=== PATIENT | female | born 1985 | race Caucasian/White ===

== ENCOUNTER 2018-01-11 09:35 | Day surgery (SDC) | payer SELFPAY, BC ==
[~2018-01-11 09:35] MED LIST: Acetaminophen/HYDROcodone 325-5 MG Tab PO PRN; Bupivacaine 0.25%/EPINEPHrine 1:200,000 10 ML SDV INJECT ONE; Bupivacaine 0.25%/EPINEPHrine 1:200,000 10 ML SDV ONE; EPINEPHrine 1 MG/ML SDV ONE; Gentamicin 40 MG/ML 2 ML Vial ONE; Lactated Ringers 1,000 ML IV SCH; Lidocaine 2% 5 ML SDV ONE; Midazolam 1 MG/ML 2 ML SDV ONE; Propofol 200 MG/20 ML SDV ONE; Rocuronium 10 MG/ML 10 ML Syringe ONE; ceFAZolin 1 GM Vial ONE; fentaNYL 100 MCG/2 ML SDV ONE
[2018-01-11] MEDS ORDERED: fentaNYL 100 MCG/2 ML SDV IVPUSH PRN (10:21)
--- NOTE | 2018-01-11 10:43 | PCM.PREANE ---
Preanesthetic Assessment - Anesthesia/Transfusion/Family Hx Anesthesia History: Prior Anesthesia Without Reaction Family History of Anesthesia Reaction: No Transfusion History: No Prior Transfusion(s) - Review of Systems General: No Symptoms Pulmonary: No Symptoms Cardiovascular: No Symptoms Gastrointestinal: No Symptoms Neurological: No Symptoms Other: Reports: None - Physical Assessment NPO Status Date: 01/10/18 O2 Sat by Pulse Oximetry: 97 Respiratory Rate: 16 Vital Signs: Last Vital Signs Temp 37.0 C 01/11/18 10:00 Pulse 93 01/11/18 10:00 Resp 16 01/11/18 10:00 BP 121/79 01/11/18 10:00 Pulse Ox 97 01/11/18 10:00 Height: 1.68 m Weight: 70.76 kg ASA Class: 1 Mental Status: Alert & Oriented x3 Airway Class: Mallampati = 1 Dentition: Reports: Normal Dentition ROM/Head Extension: Full Lungs: Clear to Auscultation, Normal Respiratory Effort Cardiovascular: Regular Rate, Regular Rhythm - Allergies Allergies/Adverse Reactions: Allergies Allergy/AdvReac Type Severity Reaction Status Date / Time Penicillins Allergy Rash Verified 01/08/18 08:30 - Acknowledgements Anesthesia Type Planned: General Anesthesia Pt an Appropriate Candidate for the Planned Anesthesia: Yes Alternatives and Risks of Anesthesia Discussed w Pt/Guardian: Yes Pt/Guardian Understands and Agrees with Anesthesia Plan: Yes Additional Comments: PMH: irritable bowel syndrome with constipation (IBS-D) PreAnesthesia Questionnaire Gastrointestinal History: Reports: Other (See Below) Other Gastrointestinal History: occasional heartburn Neurological History: Reports: Migraines Psychiatric History: Reports: Anxiety, Depression - Past Surgical History Head Surgeries/Procedures: Reports: None - SUBSTANCE USE Smoking Status *Q: Never Smoker Recreational Drug Use History: No - HOME MEDS Home Medications: Home Meds Ethinyl Estradiol/Drospirenone [Ocella 3 MG-0.03 MG] 1 tab PO ASDIRECTED [History] Multivitamin [Multivitamins] 1 tab PO DAILY 01/08/18 [History] buPROPion HCl [Wellbutrin Xl] 150 mg PO ASDIRECTED 01/08/18 [History] - CURRENT (IN HOUSE) MEDS Current Meds: Current Medications Hydrocodone Bitart/Acetaminophen ([place] 325-5 Mg) 1 tab PO Q4H PRN PRN Reason: Pain Fentanyl (Sublimaze) 50 - 100 mcg IVPUSH Q5M PRN PRN Reason: Pain Stop: 01/11/18 17:00 Lactated Ringer's (Ringers, Lactated) 1,000 mls @ 125 mls/hr IV ASDIRECTED [facility] Clindamycin Phosphate 600 mg/ (Premix) 50 mls @ 100 mls/hr IV ONETIME ONE Stop: 01/11/18 11:29 Discontinued Medications Bacitracin (Bacitracin) Confirm Administered Dose 50,000 units .ROUTE .STK-MED ONE Stop: 01/11/18 07:40 Bupivacaine HCl/Epinephrine Bitart (Marcaine 0.25%/Epinephrine 1:200,000) 10 ml INJECT ONETIME ONE Stop: 01/11/18 08:01 Bupivacaine HCl/Epinephrine Bitart (Marcaine 0.25%/Epinephrine 1:200,000) Confirm Administered Dose 30 ml .ROUTE .STK-MED ONE Stop: 01/11/18 07:36 Cefazolin Sodium (Ancef) Confirm Administered Dose 1 gm .ROUTE .STK-MED ONE Stop: 01/11/18 07:36 Epinephrine HCl (Adrenalin) Confirm Administered Dose 1 mg .ROUTE .STK-MED ONE Stop: 01/11/18 09:19 Fentanyl (Sublimaze) Confirm Administered Dose 100 mcg .ROUTE .STK-MED ONE Stop: 01/11/18 07:37 Gentamicin Sulfate (Gentamicin) Confirm Administered Dose 80 mg .ROUTE .STK-MED ONE Stop: 01/11/18 07:35 Lidocaine (Xylocaine-Mpf 2%) Confirm Administered Dose 5 ml .ROUTE .STK-MED ONE Stop: 01/11/18 07:36 Midazolam HCl (Versed 1 Mg/Ml) Confirm Administered Dose 2 mg .ROUTE .STK-MED ONE Stop: 01/11/18 07:37 Propofol (Diprivan 20 Ml) Confirm Administered Dose 200 mg .ROUTE .STK-MED ONE Stop: 01/11/18 07:36 Rocuronium [place] (Zemuron) Confirm Administered Dose 100 mg .ROUTE .STK-MED ONE Stop: 01/11/18 07:36
[2018-01-11] MEDS ORDERED: Clindamycin Phosphate in D5W 600 MG in Premix Bag 50 BAG IV ONE ×2 (11:00)
[2018-01-11] MEDS ORDERED: Dexamethasone 4 MG/ML 5 ML MDV ONE (12:22)
[2018-01-11] MEDS ORDERED: HYDROmorphone 2 MG/ML SDV ONE (12:27)
[2018-01-11] MEDS ORDERED: Ondansetron 4 MG/2 ML SDV ONE (12:31)
[2018-01-11] MEDS ORDERED: Glycopyrrolate 0.2 MG/ML SDV ONE (12:31)
[2018-01-11] MEDS ORDERED: Neostigmine Methylsulfate 1 MG/ML 5 ML Syringe ONE (12:31)
[2018-01-11] MEDS ORDERED: Ketorolac 30 MG/ML SDV ONE (12:31)
--- NOTE | 2018-01-11 15:14 | PCM.POSTAN ---
POST ANESTHESIA ASSESSMENT - MENTAL STATUS Mental Status: Alert, Oriented - RESPIRATORY Respiratory Status: Respiratory Rate WNL, Airway Patent, O2 Saturation Stable - CARDIOVASCULAR CV Status: Pulse Rate WNL, Blood Pressure Stable - GASTROINTESTINAL GI Status: No Symptoms - PAIN Pain Score: 3 - POST OP HYDRATION Hydration Status: Adequate & Stable - OBSERVATIONS Free Text/Narrative:: no anesthesia problems
--- NOTE | 2018-01-11 15:40 | PCM.OPNOTE ---
- General Post-Op/Procedure Note Date of Surgery/Procedure: 01/11/18 Operative Procedure(s): bilateral silicone submuscular breast augmentation 371cc with bilateral breast lift/mastopexy Pre Op Diagnosis: cosmetic Anesthesia Technique: General ET Tube, Local Primary Surgeon: Tonja Vargas Welder [employer] Arc: Arlene Choi Complications: None Condition: Good Free Text/Narrative:: Intake & Output 01/10/18 01/11/18 01/11/18 23:59 07:59 15:59 Intake Total 2600 Output Total 50 Balance 2550
[2018-01-11] MEDS ORDERED: Ondansetron 8 MG Tab.DIS PO ONE (16:35)
[2018-01-11] MEDS ORDERED: Ondansetron 4 MG Tab.DIS PO PRN (17:06)
--- NOTE | 2018-01-11 19:27 | PCM48HPAN ---
Post Anesthesia Note - EVALUATION WITHIN 48HRS OF ANESTHETIC Vital Signs in Normal Range: Yes Patient Participated in Evaluation: Yes Respiratory Function Stable: Yes Airway Patent: Yes Cardiovascular Function Stable: Yes Hydration Status Stable: Yes Pain Control Satisfactory: Yes Nausea and Vomiting Control Satisfactory: Yes Mental Status Recovered: Yes Resp Rate: 16
--- NOTE | 2018-01-16 08:58 | OR ---
SURGEON: BEBE MONTEIRO MD DATE OF PROCEDURE: 01/11/2018 PREOPERATIVE DIAGNOSIS: Cosmetic. POSTOPERATIVE DIAGNOSIS: Cosmetic. PROCEDURES: Bilateral silicone submuscular breast augmentation, 371 mL with bilateral breasts lift/mastopexy. HATCHERY LABORER: KAYLEN John REASON HATCHERY LABORER WAS NECESSARY: Prepping, draping, and closure assistance. ANESTHESIA: General, ET tube with local. INDICATIONS: Ms. Henson is a 32-year-old female seen today in evaluation for bilateral silicone breast augmentation submuscular plane 371 mL with bilateral breasts mastopexy as well. Risks and benefits were discussed with her thoroughly and she was in agreement to proceed. Risks were including, but not limited to, bleeding, infection, damage to underlying or overlying structures, possible need for future interventions, and possible scarring. PROCEDURE IN DETAIL: After informed consent was obtained and placed on the chart, the patient was brought to the operating theater and laid in supine position. After adequate general anesthesia was obtained, the area was prepped and draped and a time-out was completed to confirm side and site. Attention was then paid to infiltration of local anesthesia and design of the inframammary fold incision based on the previous breast markings in the preanesthesia area. An inframammary fold incision was then made, dissection was carried into the submuscular plane and the submuscular pocket was developed. The inferior attachments of the muscle were transected and meticulous hemostasis was obtained. Once adequately hemostased, attention was then paid to packing of the pocket with epinephrine-soaked laps. The symmetry procedure was completed on the opposite side. Attention was then paid back to the initial right side and dissection of the pocket was finalized. 2-0 PDS sutures were used to secure the inframammary fold in the lateral aspect of the breast pocket. Once adequately secured, the area was copiously irrigated with triple antibiotic cleansing solution without the Ancef given her penicillin allergy. Once adequately irrigated, attention was then paid to placement of the 371 mL implant in the submuscular pocket with the no-touch technique using a Adamson funnel. Once adequately placed, the symmetry procedure was completed on the left side for placement of the 371 mL implant in the submuscular plane. Once adequately placed, the wounds were closed with a 3-0 Monocryl Stratafix suture for the deep fascia and a 3-0 Monocryl for the deep dermis. Once adequately closed here, the patient was sat up into the upright position and stapler was used to tack the designed mastopexy in place. Once adequate symmetry was appreciated and appropriate tension, the patient was laid back into the supine position and markings were finalized. Attention was then paid to dissection of the mastopexy. The skin was de-epithelialized and a superomedial pedicle was used to allow rotation of the nipple into appropriate location. The remainder of the closure after de-epithelialization and re-orientation of the breast tissue was tacked in place using robbie. Attention was then paid to closure using a deep 3-0 Monocryl Stratafix suture and a running 4-0 Stratafix suture for the subcutaneous plane. The wounds were then dressed with Steri-Strips, fluffs, tape, and a compression bra. The patient tolerated this well. All counts and needles were correct at the end of the case. Serial number and reference number for the implants: . FOLLOWUP INSTRUCTIONS: The patient will see us on Sunday in clinic. She was given a prescription for pain control and a muscle relaxer. She will call sooner if any issues or concerns. SARAH / DAX /[id number]
== END 2018-01-11 18:00 | disposition home or self-care (01) ==
LOC: MW.SDS 09:35
PROVIDERS: ATTEND Plastic Surgery
DX: Z41.1 Encounter for cosmetic surgery (principal); F41.9 Anxiety disorder, unspecified; F32.9 Major depressive disorder, single episode, unspecified; Z79.899 Other long term (current) drug therapy; Z88.0 Allergy status to penicillin
CPT/HCPCS: 19316; 19325; 81025; A9270; C1789; J0171; J0690; J1100; J1170; J1580; J1885; J2250; J2405; J2704; J3010; J3490; J7120; 00402